=== PATIENT | male | born 1975 | race Asian ===

== ENCOUNTER 2017-05-26 11:42 | Emergency (ER) | payer SELFPAY ==
[~2017-05-26] VITALS: Ht 170.2 cm; Wt 79.9 kg
[2017-05-26 12:20] VITALS: BP 146/111
[2017-05-26] MEDS ORDERED: IBUPROFEN 600 MG TAB PO ONE (12:50)
[2017-05-26] MEDS ORDERED: HYDROcodone/APAP 5/325 MG 1 TAB TAB PO ONE (12:50)
[2017-05-26 14:59] VITALS: BP 135/90
== END 2017-05-26 14:58 | disposition home or self-care (01) ==
LOC: MED 11:42
DX: S93.401A Sprain of unspecified ligament of right ankle, initial encounter (principal); S90.31XA Contusion of right foot, initial encounter; S09.90XA Unspecified injury of head, initial encounter; I10 Essential (primary) hypertension; W10.9XXA Fall (on) (from) unspecified stairs and steps, initial encounter; Y93.89 Activity, other specified; Y92.89 Other specified places as the place of occurrence of the external cause; Y99.8 Other external cause status
CPT/HCPCS: 70450; 73610; 73630; 99284

== ENCOUNTER 2018-02-22 12:46 | Emergency (ER) | payer MEDICAID ==
[~2018-02-22] VITALS: Ht 172.7 cm; Wt 81.4 kg
[2018-02-22 12:48] VITALS: BP 153/110
[2018-02-22 14:00] VITALS: BP 145/95
== END 2018-02-22 13:59 | disposition home or self-care (01) ==
LOC: MED 12:46
DX: H10.9 Unspecified conjunctivitis (principal); I10 Essential (primary) hypertension
CPT/HCPCS: 99283

== ENCOUNTER 2018-05-15 09:04 | Emergency (ER) | payer MEDICAID ==
[~2018-05-15] VITALS: Ht 170.2 cm; Wt 83.9 kg
[2018-05-15 09:20] VITALS: BP 165/118
--- NOTE | 2018-05-15 09:34 | NUR ---
PATIENT AMBULATED TO BED 1.
--- NOTE | 2018-05-15 09:38 | NUR ---
PATIENT PRESENTS TO ED WITH C/O STERNAL CHEST PAIN X 2 WEEKS RADIATES TO LEFT ARM. DENIES NVD, DIZINESS, SOB, COUGHING AT THIS TIME. PT STATES AT TIMES WAKING UP AT NIGHT D/T CP . PT IS AAOX4 WITH EVEN AND STEADY GAIT; LUNGS CLEAR BL; HR EVEN AND REGULAR; SKIN IS PINK/WARM/DRY; PATIENT STATES CHEST PAIN OF 4/10 AT THIS TIME; HYPERTENSION NOTED, PATIENT POSITIONED FOR COMFORT; HOB ELEVATED; BEDRAILS UP X2; BED DOWN. ER MD MADE AWARE OF PT STATUS.
--- NOTE | 2018-05-15 09:41 | NUR ---
Patient being evaluated by physician at bedside.
[2018-05-15] MEDS ORDERED: ENALAPRILAT 2.5 MG/2 ML VIAL IVP ONE (09:45)
[2018-05-15] MEDS ORDERED: ASPIRIN 81 MG TAB.CHEW PO ONE (09:45)
[2018-05-15] MEDS ORDERED: NITROGLYCERIN 2% 1 GM PKT TP ONE (09:45)
[2018-05-15 10:09] LABS: BASOPHILS # (AUTO) 0.1 K/uL (0.00-0.22); BASOPHILS % (AUTO) 1.2 % (0.0-2.0); EOSINOPHILS # (AUTO) 0.2 K/uL (0-0.4); EOSINOPHILS % (AUTO) 2.2 % (0.0-4.0); HEMATOCRIT 50.8 % (36-52); HEMOGLOBIN 16.9 g/dL (12.0-18.0); LYMPHOCYTES # (AUTO) 2.2 K/uL (2.0-11.5); LYMPHOCYTES % (AUTO) 29.1 % (20.5-51.1); MEAN CORPUSCULAR HEMOGLOBIN 28 pg (27-31); MEAN CORPUSCULAR HGB CONC 33 g/dL (33-37); MEAN CORPUSCULAR VOLUME 83.2 fL (80-94); MONOCYTES # (AUTO) 0.8 K/uL (0.8-1.0); MONOCYTES % (AUTO) 11.1 % (1.7-9.3); NEUTROPHILS # (AUTO) 4.2 K/uL (1.8-7.7); NEUTROPHILS % (AUTO) 56.4 % (42.2-75.2); PLATELET COUNT (AUTO) 234 K/uL (140-450); WHITE BLOOD COUNT (AUTO) 7.5 K/uL (4.8-10.8)
[2018-05-15 11:05] LABS: CREATININE 0.9 mg/dL (0.7-1.3)
[2018-05-15 11:06] LABS: TOTAL BILIRUBIN 0.6 mg/dL (0.0-1.0)
[2018-05-15 11:53] VITALS: BP 145/94
--- NOTE | 2018-05-15 11:53 | NUR ---
Patient discharged with v/s stable. Written and verbal after care instructions given and explained. Patient verbalized understanding. Ambulatory with steady gait. All questions addressed prior to discharge. Advised to follow up with PMD.
== END 2018-05-15 11:53 | disposition home or self-care (01) ==
LOC: MED 09:04
DX: R07.9 Chest pain, unspecified (principal); I10 Essential (primary) hypertension; E11.9 Type 2 diabetes mellitus without complications; M75.02 Adhesive capsulitis of left shoulder; K21.9 Gastro-esophageal reflux disease without esophagitis
CPT/HCPCS: 36415; 71045; 73030; 80053; 84484; 85025; 93005; 96374; 99284; J3490

== ENCOUNTER 2018-08-26 19:14 | Emergency (ER) | payer MEDICAID ==
[~2018-08-26] VITALS: Ht 170.2 cm; Wt 77.1 kg
[2018-08-26 19:24] VITALS: BP 136/106
--- NOTE | 2018-08-26 19:24 | NUR ---
PT TAKEN TO BED 2
[2018-08-26] MEDS ORDERED: ONDANSETRON 4 MG/2 ML VIAL IVP ONE (19:40)
[2018-08-26] MEDS ORDERED: MORPHINE SULFATE 4 MG/ML SYR IVP ONE (19:40)
--- NOTE | 2018-08-26 19:43 | NUR ---
43 Y/O MALE PRESENTS TO ED WITH C/O DIZZINESS, HEAD ACHE, AND HYPERTENSION X1 HR. WAS AT [facility] WHEN SYMPTOMS BEGANE. HAS HX OF HTN AND TAKES HOME MEDS. STATES HOME MEDS ARE NOT HELPING HTN AND IS UNDER TREATMENT TO GET HTN UNDERCONTROLL. 7/10 LIU PAIN. DIZZINESS. ALERT TO NAME, PLACE, TIME, EVENT. BILAT EYES PERRLA. BILAT HAND STRENGTH STRONG AND EQUAL. BP 156/104. POSITIONED IN BED WITH HOB ELEVATED. ER MD AWARE. FAMILY AT BEDSIDE. X2 SIDE RAILS UP. CONTINUE TO MONITOR.
[2018-08-26 20:10] LABS: BASOPHILS # (AUTO) 0.1 K/uL (0.00-0.22); BASOPHILS % (AUTO) 0.9 % (0.0-2.0); EOSINOPHILS # (AUTO) 0.1 K/uL (0-0.4); EOSINOPHILS % (AUTO) 1.7 % (0.0-4.0); HEMATOCRIT 50.8 % (36-52); HEMOGLOBIN 17.2 g/dL (12.0-18.0); LYMPHOCYTES # (AUTO) 2.9 K/uL (2.0-11.5); LYMPHOCYTES % (AUTO) 34.1 % (20.5-51.1); MEAN CORPUSCULAR HEMOGLOBIN 28 pg (27-31); MEAN CORPUSCULAR HGB CONC 34 g/dL (33-37); MEAN CORPUSCULAR VOLUME 83.9 fL (80-94); MONOCYTES # (AUTO) 0.7 K/uL (0.8-1.0); MONOCYTES % (AUTO) 8.2 % (1.7-9.3); NEUTROPHILS # (AUTO) 4.6 K/uL (1.8-7.7); NEUTROPHILS % (AUTO) 55.1 % (42.2-75.2); PLATELET COUNT (AUTO) 254 K/uL (140-450); RED BLOOD CELL COUNT(AUTO) 6.06 MIL/uL (4.20-6.10); RED CELL DISTRIBUTION WIDTH 13.8 % (11.6-13.7); WHITE BLOOD COUNT (AUTO) 8.4 K/uL (4.8-10.8)
[2018-08-26 20:11] LABS: ANION GAP 13.6 (8-16); CARBON DIOXIDE 30.4 mmol/L (21-32)
[2018-08-26 20:17] LABS: ALBUMIN 4.2 g/dL (3.4-5.0); TOTAL BILIRUBIN 0.4 mg/dL (0.0-1.0)
--- NOTE | 2018-08-26 20:17 | NUR ---
PT RETURN FROM CT
[2018-08-26 20:24] LABS: CREATINE KINASE MB 1.2 ng/mL (0-3.6)
--- NOTE | 2018-08-26 20:29 | NUR ---
PT STATES PAIN SUBSIDING. 05/06 AND TOLLERABLE. CONTINUE TO MONITOR.
[2018-08-26] MEDS ORDERED: DIAZEPAM 5 MG TAB PO ONE (21:20)
[2018-08-26 21:35] VITALS: BP 142/96
--- NOTE | 2018-08-26 21:35 | NUR ---
DISCHARGE PAPERS GIVEN TO PT. 05/06 PAIN BUT TOLLERABLE. NO N/V. PT STATES SYMPTOMS RELIEVED. RX OF LOSARTIN AND AMLODIPINE GIVEN. SIDE EFFECTS EXPLAINED. INSTRUCTED TO F/U WITH PCP AND WHEN TO RETURN TO ER. ADVISED ON PROPER DIET FOR HTN AND DISCUSSED DIET MODIFICATIONS D/T FAMILY HX OF DM. PER VERBALLIZED UNDERSTANDING OF DC INSTRUCTIONS. ALL QUESTIONS ANSWERED.
== END 2018-08-26 21:35 | disposition home or self-care (01) ==
LOC: MED 19:14
DX: I10 Essential (primary) hypertension (principal); R51 Headache
CPT/HCPCS: 36415; 70450; 71045; 80053; 82550; 82553; 84484; 85025; 93005; 96374; 96375; 99284; J2270; J2405

== ENCOUNTER 2018-11-12 09:23 | Emergency (ER) | payer MEDICAID ==
[~2018-11-12] VITALS: Ht 170.2 cm; Wt 79.8 kg
[2018-11-12 09:27] VITALS: BP_SYST 1; BP_SYST 163; BP_DIAS 129
[2018-11-12 10:19] VITALS: BP 149/98
== END 2018-11-12 10:19 | disposition home or self-care (01) ==
LOC: MED 09:23
DX: I10 Essential (primary) hypertension (principal); Z76.0 Encounter for issue of repeat prescription
CPT/HCPCS: 99283

== ENCOUNTER 2018-11-12 23:48 | Emergency (ER) | payer MEDICAID ==
[~2018-11-12] VITALS: Ht 170.2 cm; Wt 81.6 kg
[2018-11-12 23:57] VITALS: BP 149/98
--- NOTE | 2018-11-12 23:57 | NUR ---
PT TAKEN TO BED 12
--- NOTE | 2018-11-13 00:04 | NUR ---
PT BIB FAMILY FOR HIGH BLOOD PRESSURE. PT WAS SEEN EARLIER IN ER FOR SAME S/S, PT STATES HE DID NOT HAVE RX OF LOSARTAN AND AMLODIPINE FOR 2 DAYS. PT FILLED RX TODAY AND TOOK MEDS, STILL CONTINUED TO HAVE BP AT HOME. PT HAS NO C/O LIU , DIZZINESS AT THIS TIME. PT AWAKE AND ALERT.
[2018-11-13] MEDS: LORazepam 1 MG TAB PO ONE (00:54)
--- NOTE | 2018-11-13 01:32 | NUR ---
PT LAYING IN BED, RR EVEN AND UNLABORED. VS NOTED. BP 145/97, HR 83. ALL NEEDS MET.
[2018-11-13] MEDS: cloNIDine 0.1 MG TAB PO ONE (01:56)
[2018-11-13 02:33] VITALS: BP 140/101
--- NOTE | 2018-11-13 02:33 | NUR ---
Patient discharged with v/s stable. Written and verbal after care instructions given and explained. Patient alert, oriented and verbalized understanding of instructions. Ambulatory with steady gait. All questions addressed prior to discharge. ID band removed. Patient advised to follow up with PMD. Rx of CLONIDINE given. Patient educated on indication of medication including possible reaction and side effects. Opportunity to ask questions provided and answered.
== END 2018-11-13 02:23 | disposition home or self-care (01) ==
LOC: MED 23:48
DX: I10 Essential (primary) hypertension (principal); R51 Headache
CPT/HCPCS: 99283

== ENCOUNTER 2018-12-31 19:53 | Emergency (ER) | payer MEDICAID ==
[~2018-12-31] VITALS: Ht 170.2 cm; Wt 84.8 kg
[2018-12-31 20:49] VITALS: BP 159/113
[2018-12-31] MEDS ORDERED: KETOROLAC 60 MG/2 ML VIAL IM ONE (22:15)
--- NOTE | 2018-12-31 22:30 | NUR ---
PT BIB SELF FOR TOOTHACHE X1 DAY. PT STATES HE HAS APPOINTMENT W/ [facility]ENTIST IN THE AM. PT ASLO REQUESTING REFILL OF HTN MEDICATIONS D/T INSURANCE CHANGE. PT AWAKE AND CALM SITTING IN CHAIR.
[2018-12-31 23:16] VITALS: BP 165/108
--- NOTE | 2018-12-31 23:16 | NUR ---
Patient discharged with v/s stable. Written and verbal after care instructions given and explained. Patient alert, oriented and verbalized understanding of instructions. Ambulatory with steady gait. All questions addressed prior to discharge. ID band removed. Patient advised to follow up with PMD. Rx of CLONIDINE, NAPROSYN, PENICILLIN, NORVASC, LOSARTAN given. Patient educated on indication of medication including possible reaction and side effects. Opportunity to ask questions provided and answered. D/C BY DR BAUTISTA
== END 2018-12-31 23:16 | disposition home or self-care (01) ==
LOC: MED 19:53
DX: K08.89 Other specified disorders of teeth and supporting structures (principal); I10 Essential (primary) hypertension
CPT/HCPCS: 96372; 99283; J1885

== ENCOUNTER 2019-02-11 19:00 | Emergency (ER) | payer MEDICAID ==
[~2019-02-11] VITALS: Ht 170.2 cm; Wt 73.9 kg
--- NOTE | 2019-02-11 19:35 | NUR ---
PATIENT AMB TO BED 12.
[2019-02-11 19:50] VITALS: BP 133/101
--- NOTE | 2019-02-11 19:50 | NUR ---
43 Y/O M, PRESENTS TO ED WITH COMPLAINTS OF RIGHT EAR PAIN STARTED 3 DAYS AGO. C/O LOSS OF HEARING IN THE RIGHT EAR AND RINGING. NO SIGNS OF DISCHARGE OR SWELLING. +EAR WAX. FAMILY AT BEDSIDE, BEDRAILS UP X1. WILL CONTINUE TO MONITOR.
--- NOTE | 2019-02-11 20:55 | NUR ---
JACOBY CHO AT BEDSIDE.
--- NOTE | 2019-02-11 21:25 | NUR ---
PATIENT IN STABLE CONDITION, STATES NO PAIN IN THE RIGHT EAR AT THIS TIME.
--- NOTE | 2019-02-11 22:10 | NUR ---
Patient discharged with v/s stable. Written and verbal after care instructions given and explained. Patient alert, oriented and verbalized understanding of instructions. Ambulatory with steady gait. All questions addressed prior to discharge. ID band removed. Patient advised to follow up with PMD. Rx of amoxcillin and cereumnex given. Patient educated on indication of medication including possible reaction and side effects. Opportunity to ask questions provided and answered.
== END 2019-02-11 22:10 | disposition home or self-care (01) ==
LOC: MED 19:00
DX: H61.21 Impacted cerumen, right ear (principal); I10 Essential (primary) hypertension
CPT/HCPCS: 99283

== ENCOUNTER 2019-04-17 10:19 | Emergency (ER) | payer MEDICAID ==
[~2019-04-17] VITALS: Ht 170.2 cm; Wt 74.8 kg
[2019-04-17 10:23] VITALS: BP 151/114
--- NOTE | 2019-04-17 10:34 | NUR ---
TRIAGE COMPLETE. VSS. RETURNED TO LOBBY TO WAIT FOR BED IN ED. DR DOMINGUEZ AWARE OF PT AND GIVEN EKG. OKAY TO WAIT IN LOBBY PER .
--- NOTE | 2019-04-17 11:49 | NUR ---
PATIENT AMBULATED STEADY GAIT TO BED 8.
[2019-04-17] MEDS ORDERED: METOPROLOL 5 MG/5 ML VIAL IVP ONE (12:15)
[2019-04-17 12:42] LABS: BASOPHILS % (AUTO) 0.6 % (0.0-2.0); EOSINOPHILS # (AUTO) 0.1 K/uL (0-0.4); EOSINOPHILS % (AUTO) 0.9 % (0.0-4.0); HEMATOCRIT 49.3 % (36-52); HEMOGLOBIN 16.2 g/dL (12.0-18.0); LYMPHOCYTES # (AUTO) 2.4 K/uL (2.0-11.5); LYMPHOCYTES % (AUTO) 30.1 % (20.5-51.1); MEAN CORPUSCULAR HEMOGLOBIN 28 pg (27-31); MEAN CORPUSCULAR HGB CONC 33 g/dL (33-37); MONOCYTES # (AUTO) 0.6 K/uL (0.8-1.0); MONOCYTES % (AUTO) 7.7 % (1.7-9.3); NEUTROPHILS # (AUTO) 4.9 K/uL (1.8-7.7); NEUTROPHILS % (AUTO) 60.7 % (42.2-75.2); PLATELET COUNT (AUTO) 261 K/uL (140-450)
[2019-04-17 13:17] LABS: ANION GAP 13.6 (8-16); CARBON DIOXIDE 28.2 mmol/L (21-32); CREATININE 0.8 mg/dL (0.7-1.3); POTASSIUM 3.8 mmol/L (3.5-5.1)
--- NOTE | 2019-04-17 13:19 | NUR ---
pt laying in bed, family at bedside. rr even and unlabored. denies any chest pain, sob or n/v. vss. all needs met.
[2019-04-17 13:29] LABS: TOTAL BILIRUBIN 0.5 mg/dL (0.0-1.0)
[2019-04-17 13:48] LABS: APPEARANCE,URINE CLEAR (CLEAR); BILIRUBIN,URINE NEGATIVE (NEGATIVE); BLOOD, URINE NEGATIVE (NEGATIVE); COLOR,URINE YELLOW (YELLOW); LEUKOCYTE ESTERASE ,URINE NEGATIVE (NEGATIVE); NITRITE, URINE NEGATIVE (NEGATIVE); PH,URINE 7.5 (5.0-9.0); UGLUCOSE NEGATIVE (NEGATIVE)
[2019-04-17 14:17] LABS: BARBITURATE, URINE NEG. ng/ml (NEG <=200); BENZODIAZEPINE, URINE NEG. ng/mL (NEG <=200); CANNABINOID, URINE NEG. ng/mL (NEG <=50); COCAINE, URINE NEG. ng/mL (NEG <=300); OPIATE, URINE NEG. ng/mL (NEG <=2000); PHENCYCLIDINE SCREEN,URINE NEG. ng/mL (NEG <=25)
--- NOTE | 2019-04-17 14:27 | NUR ---
Stable VSS BP has improved Awaiting dispo
[2019-04-17 15:02] VITALS: BP 136/94
== END 2019-04-17 15:02 | disposition home or self-care (01) ==
LOC: MED 10:19
DX: I10 Essential (primary) hypertension (principal); F41.9 Anxiety disorder, unspecified; R07.89 Other chest pain; I11.9 Hypertensive heart disease without heart failure
CPT/HCPCS: 36415; 80053; 80305; 81003; 84484; 85025; 93005; 96374; 99284; J3490

== ENCOUNTER 2020-01-06 17:55 | Emergency (ER) | payer MEDICAID ==
[~2020-01-06] VITALS: Ht 170.2 cm; Wt 77.1 kg
[2020-01-06 18:11] VITALS: BP 140/99
--- NOTE | 2020-01-06 18:17 | NUR ---
BIB SELF FOR MED REFILL: LOSARTAN 100 MG , AMLODIPINE 2.5 MG. MED HX: HTN
[2020-01-06 18:35] VITALS: BP 140/99
--- NOTE | 2020-01-06 18:35 | NUR ---
Patient discharged with v/s stable. Written and verbal after care instructions given and explained. Patient alert, oriented and verbalized understanding of instructions. Ambulatory with steady gait. All questions addressed prior to discharge. ID band removed. Patient advised to follow up with PMD. Rx of LOSARTAN & AMLODIPINE given. Patient educated on indication of medication including possible reaction and side effects. Opportunity to ask questions provided and answered.
== END 2020-01-06 18:35 | disposition home or self-care (01) ==
LOC: MED 17:55
DX: I11.9 Hypertensive heart disease without heart failure (principal); Z76.0 Encounter for issue of repeat prescription
CPT/HCPCS: 99283

== ENCOUNTER 2021-09-26 19:12 | Emergency (ER) | payer MEDICAID, OTHER ==
[~2021-09-26] VITALS: Ht 170.2 cm; Wt 88.5 kg
[2021-09-26 19:39] VITALS: BP 126/105
--- NOTE | 2021-09-26 19:49 | NUR ---
KRISTEN SWAB OBTAINED AND SENT TO LAB. PT TO LOBBY FOLLOWING TRIAGE
== END 2021-09-26 22:00 | disposition home or self-care (01) ==
LOC: MED 19:12
DX: J06.9 Acute upper respiratory infection, unspecified (principal); Z20.822 Contact with and (suspected) exposure to COVID-19; I10 Essential (primary) hypertension
CPT/HCPCS: 99283

== ENCOUNTER 2022-12-02 15:17 | Emergency (ER) | payer OTHER ==
[~2022-12-02] VITALS: Ht 170.2 cm; Wt 88.0 kg
[2022-12-02 15:32] VITALS: BP 137/90; PULSE 107; RESP 20; TEMP 99.7; O2SAT 96
[2022-12-02] MEDS ORDERED: IBUP-2213 PO (15:52)
[2022-12-02] MEDS ORDERED: BENZ-300 PO (15:52)
[2022-12-02] MEDS ORDERED: NIRM1TAB PO (15:52)
[2022-12-02] MEDS ORDERED: PROM118S5 PO (15:52)
[2022-12-02 16:50] VITALS: BP 137/90; PULSE 107; RESP 20; TEMP 99.7; O2SAT 96
== END 2022-12-02 16:50 | disposition home or self-care (01) ==
LOC: MED 15:17
DX: U07.1 COVID-19 (principal); B34.9 Viral infection, unspecified; I10 Essential (primary) hypertension; Z79.899 Other long term (current) drug therapy
CPT/HCPCS: 99281

== ENCOUNTER 2023-04-03 13:08 | Emergency (ER) | payer OTHER ==
[~2023-04-03] VITALS: Ht 167.6 cm; Wt 86.2 kg
[~2023-04-03 13:08] MED LIST: BENZ-300 PO; IBUP-2213 PO; NIRM1TAB PO; PROM118S5 PO
[2023-04-03 13:24] VITALS: BP 159/98; PULSE 122; RESP 20; TEMP 98; O2SAT 98
[2023-04-03] MEDS ORDERED: NACL 0.9% 1,000 ML IV ONE ×3 (13:45→16:20)
[2023-04-03] MEDS ORDERED: LORazepam 2 MG/ML VIAL IVP ONE (13:45)
[2023-04-03] MEDS ORDERED: ASPIRIN 81 MG TAB.CHEW PO ONE (13:45)
[2023-04-03 14:01] LABS: BASOPHILS # (AUTO) 0.1 K/uL (0.00-0.22); BASOPHILS % (AUTO) 0.8 % (0.0-2.0); EOSINOPHILS % (AUTO) 0.4 % (0.0-4.0); HEMATOCRIT 50.1 % (36-52); HEMOGLOBIN 17.2 g/dL (12.0-18.0); LYMPHOCYTES # (AUTO) 2.1 K/uL (2.0-11.5); LYMPHOCYTES % (AUTO) 19.9 % (20.5-51.1); MEAN CORPUSCULAR HEMOGLOBIN 28 pg (27-31); MEAN CORPUSCULAR HGB CONC 34 g/dL (33-37); MEAN CORPUSCULAR VOLUME 82.9 fL (80-94); MONOCYTES # (AUTO) 0.7 K/uL (0.8-1.0); MONOCYTES % (AUTO) 6.4 % (1.7-9.3); NEUTROPHILS # (AUTO) 7.6 K/uL (1.8-7.7); NEUTROPHILS % (AUTO) 72.5 % (42.2-75.2); PLATELET COUNT (AUTO) 309 K/uL (140-450); RED BLOOD CELL COUNT(AUTO) 6.04 MIL/uL (4.20-6.10); RED CELL DISTRIBUTION WIDTH 14.1 % (11.6-13.7); WHITE BLOOD COUNT (AUTO) 10.5 K/uL (4.8-10.8)
[2023-04-03 14:20] LABS: ANION GAP 15.4 (8-16); CARBON DIOXIDE 26.8 mmol/L (21-32); CREATININE 1.1 mg/dL (0.6-1.3); POTASSIUM 3.2 mmol/L (3.5-5.1)
[2023-04-03 14:29] LABS: ALANINE AMINOTRANSFERASE 104 U/L (12-78); ALBUMIN 3.7 g/dL (3.4-5.0); ALKALINE PHOSPHATASE 111 U/L (50-136); ASPARTATE AMINOTRANSFERASE 52 U/L (15-37); BILIRUBIN,DIRECT 0.1 mg/dL (0.0-0.3); LIPASE 23 U/L (16-77); TOTAL BILIRUBIN 0.6 mg/dL (0.0-1.0); TOTAL PROTEIN, SERUM 9.8 g/dL (6.4-8.2)
[2023-04-03 16:16] LABS: APPEARANCE,URINE CLEAR (CLEAR); BILIRUBIN,URINE NEGATIVE (NEGATIVE); BLOOD, URINE NEGATIVE (NEGATIVE); COLOR,URINE YELLOW (YELLOW); LEUKOCYTE ESTERASE ,URINE NEGATIVE (NEGATIVE); NITRITE, URINE NEGATIVE (NEGATIVE); PROTEIN,URINE NEGATIVE (NEGATIVE); UGLUCOSE TRACE (NEGATIVE); UROBILINOGEN,URINE 0.2 EU/dL (0.2 - 1)
[2023-04-03] MEDS ORDERED: BLOOD GLUCOSE MONITORING 1 DEV DEV FS ONE (16:20)
[2023-04-03] MEDS ORDERED: POTASSIUM CHLORIDE 10 MEQ TABER PO ONE ×2 (16:20→18:23)
[2023-04-03 16:23] LABS: AMPHETAMINE, URINE NEGATIVE ng/ml (NEG <=1000); BARBITURATE, URINE NEGATIVE ng/ml (NEG <=200); BENZODIAZEPINE, URINE NEGATIVE ng/mL (NEG <=200)
[2023-04-03 16:24] LABS: CANNABINOID, URINE POSITIVE ng/mL (NEG <=50); COCAINE, URINE NEGATIVE ng/mL (NEG <=300); OPIATE, URINE NEGATIVE ng/mL (NEG <=2000); PHENCYCLIDINE SCREEN,URINE NEGATIVE ng/mL (NEG <=25)
[2023-04-03 18:01] VITALS: BP 130/87; PULSE 122; RESP 20; TEMP 98; O2SAT 98
== END 2023-04-03 19:48 | disposition home or self-care (01) ==
LOC: MED 13:08
DX: R00.2 Palpitations (principal); F41.0 Panic disorder [episodic paroxysmal anxiety]; R07.9 Chest pain, unspecified; I10 Essential (primary) hypertension; K21.9 Gastro-esophageal reflux disease without esophagitis; Z79.899 Other long term (current) drug therapy
CPT/HCPCS: 36415; 71045; 71275; 80048; 80076; 80305; 81003; 83690; 83880; 84443; 84484; 85025; 93005; 96361; 96374; 99285; J2060; J7030; Q9967